=== PATIENT | male | born 1955 | race Hispanic/Latino ===

== ENCOUNTER 2017-02-01 10:14 | Outpatient (CLI) | payer OTHER ==
--- NOTE | 2017-02-02 10:22 | XRay Report ---
BILATERAL SHOULDER RADIOGRAPHS INDICATION: Heart and back problems. COMPARISON: None similar at this institution. FINDINGS: Frontal and Y views of the both shoulders, 3 projections demonstrate normal humeral head contours, well positioned against the glenoid. Normal acromioclavicular joints with slight degenerative spurring on the left. Preserved scapular contours. Normal visualized soft tissues and bilateral ribs. CONCLUSION: No acute bilateral shoulder radiographic abnormality, as described. Thank you for the opportunity to participate in this patient's care.
--- NOTE | 2017-02-02 10:22 | XRay Report ---
LUMBAR SPINE RADIOGRAPHS INDICATION: Heart and back problems. COMPARISON: None similar. FINDINGS: AP and lateral lumbar spine radiographs demonstrate 5 well segmented vertebrae, preserved in stature. Slight scoliosis versus positional. Moderate L3-L4 and L4-L5 disc narrowing. L4 and L5 degenerative spurring. Slight lower thoracic spine degenerative spurring as well. Normal remainder disc heights. Clear visualized lung bases. Intact SI joints. Nonobstructive bowel gas pattern. CONCLUSION: No acute radiographic abnormality with mid to lower lumbar spine degenerative changes, as described. Thank you for the opportunity to participate in this patient's care.
== END 2017-02-01 10:15 | disposition home or self-care (01) ==
LOC: XRAY 10:14
PROVIDERS: ATTEND Internal Medicine
DX: M25.812 Other specified joint disorders, left shoulder (principal); M47.896 Other spondylosis, lumbar region; R09.89 Other specified symptoms and signs involving the circulatory and respiratory systems
CPT/HCPCS: 72100